=== PATIENT | male | born 2000 | race Caucasian/White ===

== ENCOUNTER 2023-12-02 14:00 | Outpatient (CLI) | payer OTHER, SELFPAY | END 2023-12-02 14:01 | disposition home or self-care (01) | LOC: NFLDREF 12-03 08:29 | PROVIDERS: Visit Provider Family Medicine | DX: R35.1 Nocturia (principal); F31.9 Bipolar disorder, unspecified; F90.9 Attention-deficit hyperactivity disorder, unspecified type; M54.50 Low back pain, unspecified; R10.9 Unspecified abdominal pain; Z79.899 Other long term (current) drug therapy; Z12.5 Encounter for screening for malignant neoplasm of prostate | CPT/HCPCS: 80053; G0103 ==